=== PATIENT | male | born 2000 | race Caucasian/White ===

== ENCOUNTER 2020-10-04 10:32 | Outpatient (CLI) | payer OTHER, SELFPAY ==
[2020-10-04 11:11] LABS: PH Semen 7.5 (7.0-8.0)
[2020-10-04 15:20] LABS: Side 1 122; Side 2 124
[2020-10-04 15:22] LABS: Sperm Immotility 20 % (50-60); Sperm Non-Progressive Motility 10 % (5-10); Sperm Progressive Motility 70 % (31-34)
[2020-10-04 15:26] LABS: Epithelial Count Semen Rare /hpf; Pathology Referral Yes; Red Blood Count Semen Rare /hpf; White Blood Count Semen 0-4 /hpf
[2020-10-04 15:28] LABS: Viscosity Semen Normal
== END 2020-10-04 10:33 | disposition home or self-care (01) ==
PROVIDERS: PCP Physician Assistant Medical; Visit Provider Obstetrics & Gynecology
DX: Z31.69 Encounter for other general counseling and advice on procreation (principal)
CPT/HCPCS: 80500; 89320